=== PATIENT | female | born 1995 | race Hispanic/Latino ===

== ENCOUNTER → 2019-05-01 | Outpatient (CLI) | payer OTHER ==
--- NOTE | 2019-05-01 11:26 | Diagnostic Imaging Report ---
EXAM: US ABDOMEN COMPLETE DATE: 05/01/2019 10:12 AM INDICATION: Right upper quadrant abdominal pain COMPARISON: None TECHNIQUE: Transverse and longitudinal weiner scale and color doppler sonographic images of the upper abdomen were obtained. FINDINGS: LIVER 14.1 cm in the right midclavicular line. Increased echogenicity of the liver with normal contour, no masses. SPLEEN 9.8 cm in maximum diameter. Normal echogenicity, no masses. GALLBLADDER Shadowing calculi within the gallbladder. No gallbladder distention, wall thickening, or pericholecystic fluid. Negative sonographic Thakur's sign. Gallbladder wall measures 1 mm. BILE DUCTS No intra nor extra-hepatic biliary dilation. Common bile duct measures 3mm PANCREAS: Visualized portions are normal. RIGHT KIDNEY: 11.9 cm Echogenicity: Normal Collecting System: No hydronephrosis Stones: None Cyst/Mass: None LEFT KIDNEY: 13.0 cm Echogenicity: Normal Collecting System: No hydronephrosis Stones: None Cyst/Mass: None VESSELS: Aorta: Visualized portions are within normal size limits Inferior Vena Cava: Visualized portions are normal Main Portal Vein: 0.8 cm, normal size with hepatopetal flow. FREE FLUID: None IMPRESSION: Cholelithiasis without sonographic evidence of cholecystitis. Mild diffuse hepatic steatosis. Signed by: Gurinder Hernandez MD on 05/01/2019 11:23 AM
== END ==
LOC: US 09:58
PROVIDERS: ATTEND Internal Medicine Gastroenterology
DX: R10.11 Right upper quadrant pain (principal)
CPT/HCPCS: 76700